=== PATIENT | female | born 1950 | race Caucasian/White ===

== ENCOUNTER 2023-08-09 12:45 | Outpatient (REF) | payer MEDICARE, BC, SELFPAY ==
--- NOTE | 2023-08-09 11:45 | SKI_PTH ---
PATIENT: Gail Palencia LOC: [facility] U#:[id number] AGE/SX: 72/F ROOM: RE08/09/[address]: Rene Ingram MD : 1950 BED: DIS: 08/09/2023 SPEC #: [id number] RECD: 08/09/23 16:51 STATUS: ALE RERod #: [id number] KIMBERLY: 08/09/23 11:[address]: Rene Ingram DEPT: Surgical Specimen RECD BY: Zhanna Contreras ENTERED: 08/09/23 16:52 SP TYPE: LILLIANA GARCIA DR: Celine Oshea Tissues: 1 - SKIN BIOPSY(SHAVE/PUNCH) Procedures: SKIN LEVEL 4 Comments: [id number]
== END 2023-08-09 12:46 | disposition home or self-care (01) ==
LOC: LBN 12:45
PROVIDERS: PCP Nurse Practitioner Family; Visit Provider Otolaryngology
DX: C44.319 Basal cell carcinoma of skin of other parts of face (principal)
CPT/HCPCS: 88305